=== PATIENT | female | born 1950 | race Caucasian/White ===

== ENCOUNTER → 2017-08-03 | Outpatient (CLI) | payer MEDICARE ==
[~2017-08-03] MED LIST: ABILIFY2 MG PO; ACIPHEX 20 MG T20 MG PO; ACTOS 15MG TABL15 MG PO; ASPIRIN 81MG TA81 MG PO; BROMFED DM COU118 ML PO; CELEBREX 200MG200 MG PO; HUMULIN 70/30 PE3 ML SC; JANUVIA50 MG PO; LEXAPRO 10 MG T10 MG PO; LIPITOR10 MG PO; LOTREL1 CA1 OR; METFORMIN500 MG PO; PRILOSEC OTC20 MG PO; SAVELLA50 MG PO; TIZANIDINE HCL 44 MG PO; WELLBUTRIN 150150 MG PO; ZOFRAN ODT8 MG PO
--- NOTE | 2017-08-03 11:35 | RADIOLOGY REPORT PS360 ---
BONE DENSITOMETRY(HIP:LT SPINE HISTORY: POST MENOPAUSAL ORDERING PHYSICIAN: Rambo Mckinnon MD PATIENT AGE: 66 years COMPARISON: 12/08/2011 FINDINGS: The BMD measured at L1-L4 is 1.045 g/cm squared with a T score of -1.1. This is considered Osteopenic according to the World Health Organization criteria. Fracture risk is Moderate. Treatment is advised. The mean density of the hips as a T score of 0.0. Hip density has increased by 0.5%. Lumbar spine density has decreased by 6.8% IMPRESSION: Osteopenia. Treatment recommended. Suggest follow up exam July 2019
== END ==
LOC: RAD 09:47
DX: C50.912 Malignant neoplasm of unspecified site of left female breast (principal); Z78.0 Asymptomatic menopausal state; R53.83 Other fatigue; E04.1 Nontoxic single thyroid nodule; Z13.820 Encounter for screening for osteoporosis